=== PATIENT | male | born 1970 | race Caucasian/White ===

== ENCOUNTER → 2020-08-19 10:58 | Outpatient (CLI) | payer BC | END | disposition home or self-care (01) | LOC: D.CT 10:15 | PROVIDERS: ATTEND Nurse Practitioner | DX: R10.13 Epigastric pain (principal) ==

== ENCOUNTER 2020-08-31 09:40 | Day surgery (SDC) | payer BC ==
[~2020-08-31] VITALS: Ht 188 cm; Wt 134.1 kg
[2020-08-31 10:05] LABS: CALC OSMOLALITY 278 mosm/kg (275-300); CALCIUM 9.2 mg/dL (8.5-10.1); CARBON DIOXIDE 29.3 mmol/L (21.0-32.0); CHLORIDE - SERUM 103 mmol/L (98-107); CREATININE - SERUM 1.1 mg/dL (0.6-1.3); GLUCOSE 114 mg/dL (74-106); SODIUM 139 mmol/L (136-145); UREA NITROGEN 12 mg/dL (7-18); eGFR NON AFRICAN AMERICAN 75 mL/min (90-120)
[2020-08-31 10:11] LABS: BASOPHILS 0.5 % (0-2); EOSINOPHILS 1.1 % (0-7); IMMATURE GRANULOCYTES 0.2 % (0-5); LYMPHOCYTE ABS# 1.81 10x3/uL (1.32-3.57); LYMPHOCYTES 28.6 % (15-50); MCH 29.1 pg (26.0-34.0); MCHC 34.1 g/dL (31.0-37.0); MCV 85.4 fL (80.0-100.0); MEAN PLATELET VOLUME 10.5 fL (7.4-10.4); MONOCYTES 7.3 % (2-11); NEUTROPHIL ABS# 3.95 10x3/uL (1.78-5.38); NEUTROPHILS 62.3 % (40-80); PLATELET COUNT 198 10x3/uL (130-400); RBC 5.15 10x6/uL (4.20-6.10); WBC 6.3 10x3/uL (4.8-10.8)
[2020-08-31] MEDS ORDERED: LIPITOR20 MG PO (10:58)
[2020-08-31] MEDS ORDERED: AMBIEN10 MG PO (10:58)
[2020-08-31] MEDS ORDERED: HCTZ25 MG PO (10:59)
[2020-08-31] MEDS ORDERED: COZAAR100 MG PO (10:59)
[2020-08-31 11:12] VITALS: Ht 188 cm; Wt 134.1 kg
--- NOTE | 2020-10-10 10:25 | OP ---
PATIENT NAME: PORFIRIO BARRIENTOS MEDICAL RECORD: [id number] LOCATION:D.OPS ADMISSION DATE: SURGEON: MAGEN SCHUMACHER MD DATE OF OPERATION: 08/31/2020 PREOPERATIVE DIAGNOSIS: Epigastric abdominal pain. POSTOPERATIVE DIAGNOSES:Same, with: 1. Portal hypertensive duodenopathy. 2. Dysphagia. PROCEDURES: 1. Esophagogastroduodenoscopy with antral biopsies. 2. Esophageal dilation to 60-Chadian with a arpoldq-mhp-rakabarn balloon. SURGEON: Magen Schumacher MD HEADER SET UP OPERATOR: None. BLOOD LOSS: Minimal. ANESTHESIA: IV sedation. COMPLICATIONS: None. The risks, possible complications, and alternatives of the procedure were explained to the patient. He elects to proceed. ENDOSCOPIC COURSE: The patient was conveyed to the endoscopy suite electively on 08/31/2020. IV sedation was induced by the anesthesia staff. A bite block was inserted. A gastroscope was inserted into the mouth. Advanced easily into the hypopharynx. The esophagus was easily intubated as were the stomach and duodenum. Upon withdrawal, retroflexed and angulus views were obtained. Antral biopsies were obtained. I then withdrew into the cardia of the stomach. I advanced uhltasq-vav-yjbkrcel balloon. I sequentially dilated the entire length of the esophagus to 60-Chadian. The gastroscope and balloon were removed. I then readvanced the gastroscope. There has been no evidence of false passage or perforation. The endoscope was then withdrawn under direct vision. I will see the patient in my office in 2 to 3 weeks to review the results of the antral biopsies. TRANSINT:[id number] Voice Confirmation ID: [id number] DOCUMENT ID: [id number] MAGEN SCHUMACHER MD at 1025 CC: [id number] DICTATION DATE: 10/10/20 0727 CARE CLINICIAN: 10/10/20 [id number] [facility] 08/31/[address] [id number]
== END 2020-08-31 15:26 | disposition home or self-care (01) ==
LOC: D.OPS 09:40
PROVIDERS: ATTEND Surgery
DX: R13.10 Dysphagia, unspecified (principal); K76.6 Portal hypertension; R10.13 Epigastric pain; I10 Essential (primary) hypertension; E78.5 Hyperlipidemia, unspecified; G47.00 Insomnia, unspecified